=== PATIENT | female | born 1995 | race Two or more races ===

== ENCOUNTER 2025-08-08 10:00 | Day surgery (SDC) | payer OTHER ==
[2025-07-27 12:23] VITALS: BP 116/58
[~2025-08-08] VITALS: Ht 154.9 cm; Wt 54.4 kg
[2025-08-08] MEDS ORDERED: MACROBID 100 M100 MG PO (11:03)
[2025-08-08] MEDS ORDERED: TRAM1TAB98 PO (11:03)
[2025-08-08] MEDS ORDERED: LIDOCAINE HCL 1% 20 ML VIAL IJ ONE (11:30)
[2025-08-08] MEDS ORDERED: GENTAMICIN SULFATE 40 MG/ML VIAL IV ONE (11:30)
[2025-08-08] MEDS ORDERED: CEFAZOLIN SODIUM 1,000 MG VIAL IV ONE (11:30)
== END 2025-08-08 15:35 | disposition home or self-care (01) ==
LOC: CIR.AMB 10:00
PROVIDERS: ATTEND Obstetrics & Gynecology Gynecology
DX: N39.3 Stress incontinence (female) (male) (principal)
CPT/HCPCS: 57288; C1771